=== PATIENT | female | born 1935 | race Caucasian/White ===

== ENCOUNTER 2019-11-20 08:54 | Outpatient (CLI) | payer MEDICARE, SELFPAY | END 2019-11-20 08:55 | disposition home or self-care (01) | PROVIDERS: PCP Family Medicine | DX: H91.93 Unspecified hearing loss, bilateral (principal) | CPT/HCPCS: 92557; 92567 ==

== ENCOUNTER 2019-12-23 09:37 | Outpatient (CLI) | payer MEDICARE, SELFPAY ==
--- NOTE | ~2019-12-23 | CT_ITS ---
EXAMINATION: CT orbit BI wo con DATE: 12/23/2019 10:04 INDICATION: Chronic headaches TECHNIQUE: Computed tomography (CT) of the abdomen was performed without intravenous contrast. Automa renay exposure control and iterative reconstruction technique were employed. Exam dose: 168.88 mGy-cm total exam DLP. Orbits COMPARISON: None. FINDINGS: The frontozygomatic sutures, orbital rims and orbital lorenzo are intact, without evidence of fracture or bone destruction. There is a small hyperdensity of the anteromedial right cornea right cornea. No orbital mass lesion. No retrobulbar mass lesion. The optic nerves and extraocular muscles are unremarkable and symmetric. Bilateral carotid siphon internal carotid artery calcifications are incidentally noted. There is slight mucoperiosteal thickening of the lower portion of each maxillary sinus. The paranasal sinuses and mastoid air cells are otherwise normally developed and aerated. Middle and inner ear urbano aratus are normal bilaterally. IMPRESSION: No significant abnormality of the orbits Reviewed, dictated and finalized at Location [facility]. Reviewed, dictated and finalized at location B.
== END 2019-12-23 09:38 | disposition home or self-care (01) ==
PROVIDERS: PCP Family Medicine; Visit Provider Family Medicine
DX: R51 Headache (principal)
CPT/HCPCS: 70480

== ENCOUNTER 2020-03-02 12:48 | Outpatient (CLI) | payer MEDICARE, SELFPAY ==
--- NOTE | ~2020-03-02 | XR_ITS ---
XR knee LT 3V 03/02/2020 13:34 Indication: Left knee pain Procedure: 3 views left knee Comparison: 06/05/2018 Findings: There is moderate-severe osteoarthritis of the left knee. Osteopenia. No acute fracture or traumatic malalignment. No significant joint effusion. No radiopaque foreign bodies. Impression: 1: Moderate-severe osteoarthritis of the left knee. Reviewed, dictated and finalized at location A. Impression: 1: Moderate-severe osteoarthritis of the left knee.
--- NOTE | ~2020-03-02 | US_ITS ---
EXAMINATION: US arterial ankle brachial ind DATE: 03/02/2020 15:03 INDICATION: Peripheral arterial disease. TECHNIQUE: Segmental pressures and plethysmographic and Doppler waveforms of the brachial and lower e xtremity arteries were obtained. COMPARISON: None. FINDINGS: Right and left brachial artery pressures of 152 mm Hg and 153 mm Hg, respectively, are concordant (no rmal difference <= 30 mmHg). There are changes of right lower limb amputation. The left ankle-brachial index (JACIEL) is 1.13 (normal >= 0.9-1.0). The right great toe-brachial index (TBI) is 0.59 (normal >= 0.65). Arterial Doppler wav eforms are monophasic in posterior tibial artery and biphasic in dorsalis pedis. IMPRESSION: 1. Mildly decreased left TBI and normal left JACIEL, consistent with arterial occlusive disease. Note th at JACIEL may be overestimated if arteries are calcified. 2. Right lower limb amputation. Reviewed, dictated and finalized at location A. IMPRESSION: 1. Mildly decreased left TBI and normal left JACIEL, consistent with arterial occl usive disease. Note that JACIEL may be overestimated if arteries are calcified. 2. Right lower limb amputation.
[2020-03-02 13:05] LABS: Basophils Absolute Auto 0.02 K/mm3 (0.00-0.10); Basophils Percent Auto 0.3 % (0.0-1.0); Eosinophils Absolute Auto 0.13 K/mm3 (0.02-0.50); Eosinophils Percent Auto 1.8 % (1.0-6.0); Hematocrit 39.3 % (35.0-42.0); Immature Granulocyte Absolute 0.02 K/mm3 (0.00-0.00); Immature Granulocyte Percent A 0.3 % (0.0-0.0); Lymphocytes Absolute Auto 2.45 K/mm3 (1.10-4.50); Lymphocytes Percent Auto 34.6 % (18.0-42.0); Mean Corpuscular HGB Conc 30.5 g/dL (32.0-36.0); Mean Corpuscular Hemoglobin 22.5 pg (27.0-31.0); Mean Corpuscular Volume 73.7 fL (78.0-102.0); Mean Platelet Volume 12.3 fl (9.2-11.8); Monocytes Absolute Auto 0.76 K/mm3 (0.10-0.90); Monocytes Percent Auto 10.7 % (2.0-11.0); Neutrophils Absolute Auto 3.7 K/mm3 (1.7-7.2); Neutrophils Percent Auto 52.3 % (50.0-70.0); Platelet Count Result 275 K/mm3 (150-420); Red Blood Count 5.33 M/mm3 (4.20-5.40); Red Cell Distribution Width 17.2 % (11.6-14.4); White Blood Count 7.1 K/mm3 (4.8-10.8)
[2020-03-02 13:18] LABS: Alanine Aminotransferase 16 U/L (14-59); Albumin Level 3.3 g/dL (3.4-5.0); Alkaline Phosphatase 71 U/L (46-116); Anion Gap 11.3 mmol/L (7-16); Aspartate Amino Transferase 11 U/L (15-37); Bilirubin,Total 0.3 mg/dL (0.00-1.00); Blood Urea Nitrogen 10 mg/dL (7-18); Calcium 8.9 mg/dL (8.5-10.1); Carbon Dioxide 28 mmol/L (21-32); Chloride 106 mmol/L (98-108); D Dimer 0.37 mg/L (0.19-0.50); Estimated Glomerular Filt Rate > 60; Glucose 103 mg/dL (70-99); Osmolality Calculated 291 mOsm/kg (285-295); Potassium 4.3 mmol/L (3.5-5.1); Sodium 141 mmol/L (136-145); Total Protein 6.7 g/dL (6.4-8.2)
== END 2020-03-02 12:49 | disposition home or self-care (01) ==
LOC: CHSLAB 12:50
PROVIDERS: PCP Family Medicine; Visit Provider Family Medicine
DX: R22.0 Localized swelling, mass and lump, head (principal); R09.89 Other specified symptoms and signs involving the circulatory and respiratory systems; M25.562 Pain in left knee
CPT/HCPCS: 36415; 73562; 80053; 85025; 85380; 93922

== ENCOUNTER 2020-03-12 09:24 | Outpatient (CLI) | payer MEDICARE, SELFPAY ==
--- NOTE | ~2020-03-12 | MR_ITS ---
EXAMINATION: MR brain IAC wo con EXAM DATE: 03/12/2020 11:00 INDICATION: Right-sided hearing loss. TECHNIQUE: Multi-sequential, multiplanar MR images of the brain, brainstem, internal auditory canals were obtained without contrast. Whole brain sagittal T1, axial diffusion, gradient echo (T2*), T1, T 2, FLAIR sequences obtained. High resolution coronal 3-D FIESTA, coronal T1 FSE, axial T1 FSPGR of t he internal auditory canals. According to note made by the technologist performing the examination, courtney islas declined contrast, stating allergic to all contrast. Correlation is made to head CT 01/21/2018. FINDINGS: No evidence of mastoid or middle ear opacification. The 7th/8th cranial nerve complexes a re symmetric, normal in course and caliber. No cerebellopontine angle masses. Posterior fossa unrem arkable. There are no areas of restricted diffusion to suggest acute infarction. There is no acute hemorrhage seen on the T2*, a hemosiderin sensitive sequence. No intraparenchymal brain mass lesion. There is mild periventricular and subcortical T2/FLAIR signal hyperintensity, nonspecific but probably related to small vessel ischemic disease (microangiopathy). There is mild prominence of the sulci and vent ricles related to cerebral atrophy. There are no extra-axial collections. Flow voids are seen in t he cerebral arteries on the T2-weighted sequences consistent with their expected patency. The orbits are unremarkable. Soft tissue is unremarkable. IMPRESSION: 1. Unremarkable cerebellopontine angles. 2. Mild chronic age related findings. Reviewed, dictated and finalized at location B.
== END 2020-03-12 09:25 | disposition home or self-care (01) ==
LOC: CHSIMG 09:26
PROVIDERS: PCP Family Medicine; Visit Provider Family Medicine
DX: R22.0 Localized swelling, mass and lump, head (principal)
CPT/HCPCS: 70551

== ENCOUNTER 2020-05-05 10:46 | Outpatient (CLI) | payer MEDICARE, MEDICAID, SELFPAY ==
--- NOTE | ~2020-05-05 | US_ITS ---
EXAMINATION: US thyroid DATE: 05/05/2020 11:37 INDICATION: Nontoxic goiter. Single thyroid nodule. TECHNIQUE: Multiple ultrasound images of the thyroid were obtained. COMPARISON: Ultrasound 12/26/2017 FINDINGS: The right thyroid lobe measures 6.0 x 2.4 x 1.5 cm. The left thyroid lobe measures 5.0 x 3.3 x 1.8 c m. In the right thyroid lobe, there is an 8 mm predominantly solid, hypoechoic, yegzi-fwep-rlrs nodu le with smooth margin without echogenic foci (TI-RADS TR4). In the right thyroid lobe, there is a 4.7 cm mixed cystic and solid, hypoechoic, ddmvp-rxmb-cero nodule with lobulated margin without echogeni c foci (TR4). In the left thyroid lobe, there is a 2.4 cm solid, hypoechoic, utbgw-[id number]-cfsf nodule w ith smooth margin without echogenic foci (TR4). IMPRESSION: 1. Thyroid nodules. Ultrasound-guided fine-needle aspiration is recommended of the 2 largest thyroid nodules if not previously performed. Reviewed, dictated and finalized at location B.
== END 2020-05-05 10:47 | disposition home or self-care (01) ==
PROVIDERS: PCP Family Medicine; Visit Provider Otolaryngology
DX: E04.9 Nontoxic goiter, unspecified (principal); E04.1 Nontoxic single thyroid nodule
CPT/HCPCS: 76536

== ENCOUNTER 2020-05-16 11:27 | Emergency (ER) | payer MEDICARE, MEDICAID, SELFPAY ==
--- NOTE | ~2020-05-16 | XR_ITS ---
EXAMINATION: XR chest 2V DATE: 05/16/2020 13:08 INDICATION: Hemoptysis. TECHNIQUE: Frontal and lateral views of the chest were obtained. COMPARISON: Chest single view 07/12/2011 FINDINGS: There is mild atelectasis at right lung base. No pleural effusion or pneumothorax. Cardiome hernan is noted. There is a large hiatal hernia. Surgical clips in the right upper quadrant are likely from cholecystectomy. IMPRESSION: 1. Large hiatal hernia. 2. Mild atelectasis at right lung base. 3. Cardiomegaly. Reviewed, dictated and finalized at location B.
[2020-05-16 12:23] VITALS: BP 120/65; PULSE 112; RESP 16; TEMP 37.1; O2SAT 97
--- NOTE | 2020-05-16 12:26 | ED.URI ---
HPI - URI/Sore Throat General Chief Complaint: Upper Respiratory Infection Stated Complaint: spitting up blood Time Seen by Provider: 05/16/20 12:27 History of Present Illness HPI Narrative: 85-year-old female patient is here with chief complaints of having spit up some blood for the last 3 days. She states that when she coughs she notices a small speck of blood and today she noticed a small clot. The blood is mixed with white sputum otherwise. There is no green drainage. The patient states that the cough is not very strong it is very mild. Patient has been diagnosed with a mass in the anterior neck recently and is scheduled for a biopsy on the mass in 2 days . patient is denying any sore throat. She states that she has no trouble speaking or breathing or swallowing. She does complain about mild wheezing. She denies any chest discomfort, shortness of breath or persistent cough. Patient denies being on blood thinners at this time. Patient is apparently getting herself ready to have a cataract surgery in the near future. Related Data Home Medications Medication Instructions Recorded Confirmed acetaminophen 500 mg tablet 500 mg PO Q6H PRN 10/16/19 aspirin 81 mg chewable tablet 81 mg PO DAILY 10/16/19 dicyclomine 10 mg capsule 10 mg PO BID 10/16/19 diltiazem HCl 180 mg capsule,24 180 mg PO DAILY 10/16/19 hr,extended release gabapentin 300 mg capsule 300 mg PO TID 10/16/19 metformin 500 mg tablet 500 mg PO BID 10/16/19 pravastatin 10 mg tablet 10 mg PO DAILY 10/16/19 Allergies Allergy/AdvReac Type Severity Reaction Status Date / Time IVP dye Allergy Intermediate Unknown Uncoded 03/29/20 10:40 Review of Systems Review of Systems: All systems reviewed & are unremarkable except as noted in HPI and below Constitutional: Constitutional: Reports no additional constitutional complaints Eyes: Eyes: Denies change in vision and Denies photophobia ENT: Denies epistaxis, Denies nasal congestion and Denies sore throat Cardiovascular: Cardiovascular: Reports no additional cardiovascular complaints Respiratory: Respiratory: Reports no additional respiratory complaints, Denies chest congestion and Denies dyspnea Integumentary/Breasts: Skin/Breast: Denies pruritus and Denies erythema Neurologic: Reports system reviewed and no additional complaints, except as documented Psychiatric: Psychiatric: Reports no additional psychiatric complaints Allergic/Immunologic: Allergic/Immunologic: Reports no additional allergic/immunologic complaints [facility] Past Medical History Medical History CAD in [place] artery Cervical spondylosis (10/22/17) 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) Decreased hearing (06/05/18) DM w/o complication type II (09/30/18) OLSON (dyspnea on exertion) Dyslipidemia Essential hypertension Pedal edema (03/17/18) Primary osteoarthritis of left knee Right carotid bruit Thyroid nodule (01/20/18) Family History Family History Other Diabetes mellitus Family history of arthritis Social History Social History Smoking status: Former smoker Alcohol intake: never Exam Const: General: no acute distress Orientation/consciousness: patient oriented x3 HENMT: Head: normal to inspection Ears: external ears normal and TM's normal bilaterally General nose exam: Normal nares present, no nasal discharge noted and no epistaxis Mouth: Yes lip normal Throat: posterior oropharynx normal and uvula midline Eyes: Conjunctivae: conjunctivae normal EOM: EOMs intact bilaterally Neck: Neck: normal visual inspection Other: A small firm masses noted in the suprasternal area. The mass is nontender to touch and the skin overlying it is within normal limits. Chest: Chest palpation & inspection: normal inspection of the liz
== END 2020-05-16 13:58 | disposition home or self-care (01) ==
PROVIDERS: Emergency Provider Emergency Medicine; PCP Family Medicine
DX: R04.2 Hemoptysis (principal)
CPT/HCPCS: 71046; 99282; 99283

== ENCOUNTER 2020-05-18 12:24 | Outpatient (CLI) | payer MEDICARE, MEDICAID, SELFPAY ==
--- NOTE | ~2020-05-18 | US_ITS ---
CORRECTED REPORT order changed 05/24/20 [facility] [place] EXAMINATION: US FNA w image guidance, US FNA w image guidance DATE: 05/18/2020 14:40 INDICATION: Patient presents for biopsy of indeterminate thyroid nodules, one in each lobe. TECHNIQUE: The procedure and its benefits and risks were discussed with the patient. Risks specifically discussed included bleeding and infection. The patient verbalized understanding of the risks and agreed to proceed. A time out was performed to verify patient information and procedure. The neck was prepared and draped in the usual sterile manner. Attention was first directed toward the solid left thyroid nodule. 1 mL 1% lidocaine was used for local anesthesia. Five passes were made with a 25G needle into the lesion. Appropriate needle location was documented with continuous sonographic guidance. The specimens were passed to the neurodiagnostic technologist in the room. Attention was then directed towards the cystic and solid right thyroid nodule. 1 mL 1% lidocaine was used for local anesthesia. Five passes were made with a 25G needle into the lesion. Appropriate needle location was documented with continuous sonographic guidance. The specimens were passed to the neurodiagnostic technologist in the room. A sterile bandage was applied. There were no immediate complications. FINDINGS: Grayscale ultrasound images demonstrate needles advanced into bilateral thyroid nodules for biopsy. IMPRESSION: 1. Successful ultrasound-guided fine needle aspiration of bilateral thyroid nodules. Reviewed, dictated and finalized at location A. MTDD IMPRESSION: 1. Successful ultrasound-guided fine needle aspiration of bilateral thyroid no dules.
== END 2020-05-18 12:25 | disposition home or self-care (01) ==
LOC: CHSIMG 12:26
PROVIDERS: PCP Family Medicine; Visit Provider Otolaryngology
DX: E04.1 Nontoxic single thyroid nodule (principal)
CPT/HCPCS: 10005; 10006; 88173; 88305

== ENCOUNTER 2020-06-24 09:55 | Outpatient (CLI) | payer MEDICARE, MEDICAID, SELFPAY ==
--- NOTE | ~2020-06-24 | CT_ITS ---
EXAMINATION: CT soft tissue neck wo con DATE: 06/24/2020 11:06 INDICATION: Neck mass. TECHNIQUE: Computed tomography (CT) of the neck was performed without intravenous contrast. Automated exposure control and iterative reconstruction technique were employed. The dose-length product was 4 33.53 mGy-cm. COMPARISON: CT neck 01/21/2018, thyroid ultrasound 05/05/2020 FINDINGS: There are no pathologically enlarged lymph nodes. There are nodules in the thyroid measurin g up to 5.4 cm. Calcified mediastinal lymph nodes are consistent with old granulomatous disease. Ther e is severe cervical spondylosis. IMPRESSION: 1. Multinodular goiter. Note that biopsy on 05/18/2020 was very suspicious for malignancy. No evidence of metastatic disease. Reviewed, dictated and finalized at location A. IMPRESSION: 1. Multinodular goiter. Note that biopsy on 05/18/2020 was very suspicious for m alignancy. No evidence of metastatic disease.
[2020-06-24 11:43] LABS: Thyroid Stimulating Hormone 0.661 uIU/mL (0.465-4.680)
[2020-06-24 12:22] LABS: Free T4 Free Thyroxine 1.17 ng/mL (0.78-2.19)
[2020-06-28 05:19] LABS: Calcitonin <2 pg/mL (<=5)
== END 2020-06-24 09:56 | disposition home or self-care (01) ==
LOC: ANHIMG 09:56
PROVIDERS: PCP Family Medicine; Visit Provider Otolaryngology
DX: C73 Malignant neoplasm of thyroid gland (principal); R22.1 Localized swelling, mass and lump, neck; E04.9 Nontoxic goiter, unspecified; E04.1 Nontoxic single thyroid nodule
CPT/HCPCS: 36415; 70490; 82308; 84439; 84443

== ENCOUNTER 2020-07-12 09:42 | Outpatient (CLI) | payer MEDICARE, MEDICAID, SELFPAY ==
--- NOTE | 2020-07-12 10:05 | ECG_ITS ---
Measurements Intervals [place] Rate: 116 P: IN: 0 QRS: 95 QRSD: 92 T: -74 QT: 339 QTc: 473 Interpretive Statements ATRIAL FIBRILLATION WITH RAPID VENTRICULAR RESPONSE CONSIDER LIMB LEAD REVERSAL CANNOT RULE OUT SEPTAL INFARCT, AGE INDETERMINATE BORDERLINE ST-T WAVE ABNORMALITY- INFERIOR LEADS ABNORMAL ECG Electronically Signed On 07-12-2020 10:26:56 CDT by Julio C Gomes D.O.
[2020-07-12 10:43] LABS: Anion Gap 14 mmol/L (8-16); Blood Urea Nitrogen 11 mg/dL (7-18); Carbon Dioxide 22 mmol/L (21-32); Chloride 106 mmol/L (98-108); Estimated Glomerular Filt Rate > 60; Glucose 142 mg/dL (70-99); Osmolality Calculated 295 mOsm/kg (285-295); Potassium 4.6 mmol/L (3.5-5.1); Sodium 142 mmol/L (136-145)
[2020-07-12 11:02] LABS: Cholesterol 157 mg/dL (0-200); HDL Direct 38 mg/dL (40-60); LDL Cholesterol Calculated 89 mg/dL (<130); Triglycerides 151 mg/dL (0-150)
== END 2020-07-12 09:43 | disposition home or self-care (01) ==
LOC: CHSLAB 09:45
PROVIDERS: PCP Family Medicine; Visit Provider Internal Medicine Cardiovascular Disease
DX: E78.5 Hyperlipidemia, unspecified (principal); E11.9 Type 2 diabetes mellitus without complications
CPT/HCPCS: 36415; 80048; 80061; 93005

== ENCOUNTER 2020-07-13 04:00 | Outpatient (CLI) | payer MEDICARE, MEDICAID, SELFPAY ==
[2020-07-13 19:05] LABS: SARS-CoV-2 RNA PCR Negative
== END 2020-07-13 04:01 | disposition home or self-care (01) ==
LOC: ANHCOVIDDT 04:02
PROVIDERS: PCP Family Medicine; Visit Provider Otolaryngology
DX: Z01.812 Encounter for preprocedural laboratory examination (principal); Z20.828 Contact with and (suspected) exposure to other viral communicable diseases
CPT/HCPCS: 87635; C9803; U0003

== ENCOUNTER 2020-07-14 11:01 | Outpatient (CLI) | payer MEDICARE, MEDICAID, SELFPAY ==
--- NOTE | 2020-07-14 11:10 | ECG_ITS ---
Measurements Intervals [place] Rate: 83 P: ND: 0 QRS: 97 QRSD: 99 T: -78 QT: 399 QTc: 470 Interpretive Statements ATRIAL FIBRILLATION RIGHT AXIS DEVIATION ANTEROSEPTAL INFARCT, AGE INDETERMINATE ST-T WAVE ABNORMALITY IN INF/LAT LEADS- CONSIDER ISCHEMIA ABNORMAL ECG Electronically Signed On 07-14-2020 11:17:20 CDT by Julio C Gomes D.O.
== END 2020-07-14 11:02 | disposition home or self-care (01) ==
LOC: CHSCARD 11:03
PROVIDERS: PCP Family Medicine; Visit Provider Anesthesiology
DX: I48.20 Chronic atrial fibrillation, unspecified (principal)
CPT/HCPCS: 93005

== ENCOUNTER 2020-08-03 07:42 | Outpatient (CLI) | payer MEDICARE, MEDICAID, SELFPAY | END 2020-08-03 07:43 | disposition home or self-care (01) | LOC: CHSIMG 07:45 | PROVIDERS: PCP Family Medicine | DX: Z53.8 Procedure and treatment not carried out for other reasons (principal) | CPT/HCPCS: 99199 ==

== ENCOUNTER 2020-09-12 12:23 | Outpatient (CLI) | payer MEDICARE, MEDICAID, SELFPAY ==
--- NOTE | ~2020-09-12 | XR_ITS ---
EXAMINATION: XR soft tissue neck DATE: 09/12/2020 12:59 INDICATION: Thyroid neoplasm, malignant. TECHNIQUE: 2 views of the neck soft tissues were obtained. COMPARISON: CT neck 06/24/2020 FINDINGS: The adenoids, palatine tonsils, prevertebral soft tissues, and epiglottis are normal. There is a mass in the anteroinferior neck. There is moderate cervical spondylosis. IMPRESSION: 1. 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 Reviewed, dictated and finalized at location A. GER IMPRESSION: 1. Anteroinferior neck mass again seen, consistent with medullary thyroid neal bedoya
--- NOTE | ~2020-09-12 | XR_ITS ---
XR chest 2V 09/12/2020 12:59 Indication: Coughing up blood. Procedure: PA and lateral views of the chest Comparison: 05/16/2020 Findings: Cardiomegaly. There is a coronary artery stent. There are calcified pulmonary nodules left midlung zone, consistent with chronic granulomatous disease. Large hiatal hernia. No focal pneumonia, effusion or pneumothorax. No acute osseous abnormality. Impression: 1: No acute cardiopulmonary disease. 2: Large hiatal hernia. Reviewed, dictated and finalized at location A. 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 2: Large hiatal hernia.
== END 2020-09-12 12:24 | disposition home or self-care (01) ==
LOC: CHSIMG 12:25
PROVIDERS: PCP Family Medicine; Visit Provider Family Medicine
DX: R06.02 Shortness of breath (principal); C73 Malignant neoplasm of thyroid gland
CPT/HCPCS: 70360; 71046

== ENCOUNTER 2020-09-14 13:29 | Outpatient (CLI) | payer MEDICARE, MEDICAID, SELFPAY ==
[2020-09-14 13:40] VITALS: PULSE 83; O2SAT 85
[2020-09-14 13:41] VITALS: PULSE 92; O2SAT 95
--- NOTE | 2020-09-14 14:06 | HOMEO2EVAL ---
Home Oxygen Evaluation RC: Home Oxygen (O2) Evaluation Start: 09/14/20 13:57 Freq: Status: Active Protocol: RPE Activity Type Activity Date Activity User E-Sign Co-Sign Detail Recorded Client Recorded Date Recorded By Document 09/14/20 13:40 B [id number] 09/14/20 14:05 SJB Document 09/14/20 13:41 B [id number] 09/14/20 14:05 B 09/14/20 09/14/20 13:40 13:41 Home O2 Evaluation Test Phase Resting Exercise Oxygen Delivery Room Air Nasal Cannula Oxygen Flow Rate (L/min) 2 Pulse Oximetry (90-100 %) 85 L 95 Pulse Rate (60-100 beats/min) 83 92 Activity Tolerance Poor Rating of Perceived Dyspnea (PD) +2 Mild, Some +4 Severe Difficulty, Difficulty, Noticeable to Participant the Observer Cannot Continue Rate of Perceived Exertion (PE) 13 Somewhat 15 Hard Hard Home Oxygen Evaluation Comments Pt exercised on Nustep X 6 mins on 2 lpm maintaining an Sp02 of 95%, taking a few rests during the exercise. Pt does have a below the knee amputee. Treatment Charges O2 Evaluation
== END 2020-09-14 13:30 | disposition home or self-care (01) ==
LOC: CHSCARD 13:31
PROVIDERS: PCP Family Medicine; Visit Provider Family Medicine
DX: R06.02 Shortness of breath (principal)
CPT/HCPCS: 94618

== ENCOUNTER 2020-09-17 11:18 | Observation (INO) | payer MEDICARE, MEDICAID, SELFPAY ==
[2020-09-17] VITALS (8 sets, daily range): BP systolic 111–133; BP diastolic 48–79; PULSE 95–154; RESP 17–36; TEMP 36.3–37; O2SAT 94–98; BMI 21.0
--- NOTE | ~2020-09-17 | NM_ITS ---
EXAMINATION: NM pulmonary perfusion EXAM DATE: 09/19/2020 12:22 INDICATION: Shortness of Breath, Elevated D-Dimer . TECHNIQUE: A perfusion lung scan was performed. The patient was injected with 5 mCi technetium 99m M AA and imaged. Modified PIOPED 2 criteria used for interpretation of perfusion without ventilation st udy (recent chest x-ray instead for comparison). Correlation is made to chest x-ray same date. FINDINGS: Minimal perfusion heterogeneity without segmental perfusion defects. No lung opacities on c hest x-ray same date. IMPRESSION: Very low probability pulmonary embolism. Reviewed, dictated and finalized at location B. CTOR OF BUSINESS OPERATIONS
--- NOTE | ~2020-09-17 | XR_ITS ---
EXAMINATION: XR chest 1V portable EXAM DATE: 09/17/2020 12:37 INDICATION: Shortness of breath. TECHNIQUE: Portable AP frontal chest x-ray was obtained. Comparison is made to prior examination from 09/12/2020. FINDINGS: Rounded approximately 1 cm left midlung zone density, could be granuloma given the adjacent calcifications. Possible air-fluid level within a central cavitary region. Follow-up nonemergent liz st CT recommended. The cardiomediastinal silhouette is prominent but magnified on this AP technique. There is no pneumothorax suspected. There are no pleural effusions. Large hiatal hernia less well urbano reciated on this examination. There is aortic arteriosclerosis. IMPRESSION: 1. Indeterminate left midlung zone cavitary nodular region. Follow-up chest CT without contrast phil mmended. 2. Gastroesophageal hiatal hernia. 3. No acute findings. Reviewed, dictated and finalized at location A. CAB DRIVER IMPRESSION: 1. Indeterminate left midlung zone cavitary nodular region. Follow-up chest CT without contrast recommended. 2. Gastroesophageal hiatal hernia. 3. No acute findings.
--- NOTE | ~2020-09-17 | XR_ITS ---
XR chest 1V portable 09/19/2020 11:52 Indication: Dyspnea Procedure: AP view of the chest Comparison: Comparison to multiple prior studies sequentially, with oldest reviewed study dated 05/16. Findings: Cardiomegaly. There is a hiatal hernia. No focal air space disease, pulmonary edema, pleura l effusion or suspected pneumothorax. No acute osseous abnormality. There are cholecystectomy clips. Impression: 1: No acute cardiopulmonary disease. 2: Cardiomegaly. 3: Hiatal hernia. Reviewed, dictated and finalized at location A. MOTIVE REPAIR TECHNICIAN Impression: 1: No acute cardiopulmonary disease. 2: Cardiomegaly. 3: Hiatal hernia.
--- NOTE | 2020-09-17 11:33 | ECG_ITS ---
Measurements Intervals [place] Rate: 150 P: ND: 0 QRS: 70 QRSD: 89 T: 0 QT: 271 QTc: 429 Interpretive Statements ATRIAL FIBRILLATION WITH RAPID VENTRICULAR RESPONSE VENTRICULAR PREMATURE COMPLEX ST-T WAVE ABNORMALITY IN ANTEROLAT/INF LEADS- CONSIDER ISCHEMIA BASELINE ARTIFACT- I, II, III, AVF, V3-V4 ABNORMAL ECG Electronically Signed On 09-18-2020 7:48:43 [employer] by Julio C Gomes D.O.
--- NOTE | 2020-09-17 11:36 | ED.SOB ---
HPI - SOB/Dyspnea General Chief Complaint: Shortness of Breath/Dyspnea Stated Complaint: ambulance Time Seen by Provider: 09/17/20 11:30 Source: patient Mode of arrival: EMS Limitations: no limitations History of Present Illness HPI Narrative: 85-year-old woman brought in today by EMS complaining of shortness of breath. She states that she has had cough productive of white sputum and some shortness of breath ever since May. She denies fever, hemoptysis, vomiting, fever, chest pain, and abdominal pain. She denies any sick exposures. She states that she is undergoing radiation therapy to her thyroid for a mass. She states she did not take her diltiazem this morning. MD elicited complaint: shortness of breath Pertinent past history: diabetes Onset (ago): week(s) Context: medication noncompliance Timing: constant Severity: moderate Exacerbating factors: nothing Known history of: diabetes and other ( atrial fibrillation) Associated symptoms: cough and sputum production Treatment prior to arrival: none Related Data Home Medications Medication Instructions Recorded Confirmed gabapentin 300 mg capsule 300 mg PO TID 10/16/19 09/17/20 metformin 500 mg tablet 500 mg PO BID 10/16/19 09/17/20 pravastatin 10 mg DAILY 07/08/20 09/17/20 diltiazem HCl 180 mg capsule,24 360 mg PO DAILY cap 07/13/20 09/17/20 hr,extended release alprazolam 0.25 mg PO HS PRN 09/17/20 09/17/20 metoprolol succinate 50 mg PO DAILY 09/17/20 09/17/20 Allergies Allergy/AdvReac Type Severity Reaction Status Date / Time iohexol Allergy Hives Verified 09/17/20 11:36 [From contrast - CT, X-RAY] Review of Systems Constitutional: Constitutional: Denies chills, Denies fever(s) and Reports weakness ENT: Denies dysphagia, Denies nasal congestion and Denies sore throat Cardiovascular: Cardiovascular: Denies chest pain and Denies radiating jaw, neck or arm pain Respiratory: Respiratory: Reports cough, Reports dyspnea and Denies wheezing Gastrointestinal: Gastrointestinal: Denies abdominal pain, Denies diarrhea, Denies nausea and Denies vomiting Genitourinary: Genitourinary: Denies nocturia and Denies dysuria Musculoskeletal: Musculoskeletal: Denies arthralgias and Denies joint swelling Integumentary/Breasts: Skin/Breast: Denies pruritus, Denies erythema and Denies rash Neurologic: Denies vertigo, Denies dizziness and Denies syncope Hematologic/Lymphatic: Hematologic/Lymphatic: Denies easy bleeding and Denies easy bruising Allergic/Immunologic: Allergic/Immunologic: Denies lip swelling, Denies throat swelling and Denies tongue swelling PMFSH Past Medical History Medical History CAD in [place] artery Cervical spondylosis (10/22/17) 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) Decreased hearing (06/05/18) DM w/o complication type II (09/30/18) OLSON (dyspnea on exertion) Dyslipidemia Essential hypertension Pedal edema (03/17/18) Primary osteoarthritis of left knee Right carotid bruit Thyroid nodule (01/20/18) Family History Family History Other Diabetes mellitus Family history of arthritis Social History Social History Smoking status: Former smoker Tobacco type: cigarettes Second hand tobacco smoke exposure: No Additional smoking assessment comments: QUIT 1985 Alcohol intake: never Spiritual care concerns: No Exam Const: General: alert and ill appearing chronically Nutritional Appearance: thin Orientation/consciousness: patient oriented x3 Limitations: no limitations Other: anxious appearing HENMT: Mouth: Yes moist mucous membranes Throat: posterior oropharynx normal and uvula midline Neck: Other: Nontender mobile mass over the sternal notch. Resp: Effort & Inspection: normal respiratory effort and not labored
[2020-09-17] MEDS: SODIUM CHLORIDE 0.9% IV 500 ML 999 ML IV CONT ×2 (11:53→12:47)
[2020-09-17 11:55] LABS: Basophils Absolute Auto 0.03 K/mm3 (0.00-0.10); Basophils Percent Auto 0.3 % (0.0-1.0); Eosinophils Absolute Auto 0.16 K/mm3 (0.02-0.50); Eosinophils Percent Auto 1.7 % (1.0-6.0); Hematocrit 45.3 % (35.0-42.0); Hemoglobin 13.4 g/dL (11.7-13.8); Immature Granulocyte Absolute 0.03 K/mm3 (0.00-0.00); Immature Granulocyte Percent A 0.3 % (0.0-0.0); Immature Platelet Fraction Pct 7.6 % (1.0-7.0); Lymphocytes Absolute Auto 1.26 K/mm3 (1.10-4.50); Lymphocytes Percent Auto 13.5 % (18.0-42.0); Mean Corpuscular HGB Conc 29.6 g/dL (32.0-36.0); Mean Corpuscular Hemoglobin 22.8 pg (27.0-31.0); Mean Corpuscular Volume 76.9 fL (78.0-102.0); Mean Platelet Volume 12.3 fl (9.2-11.8); Monocytes Absolute Auto 0.94 K/mm3 (0.10-0.90); Monocytes Percent Auto 10.1 % (2.0-11.0); Neutrophils Absolute Auto 6.9 K/mm3 (1.7-7.2); Neutrophils Percent Auto 74.1 % (50.0-70.0); Platelet Count Result 297 K/mm3 (150-420); Red Blood Count 5.89 M/mm3 (4.20-5.40); Red Cell Distribution Width 18.7 % (11.6-14.4); White Blood Count 9.3 K/mm3 (4.8-10.8)
[2020-09-17 11:57] LABS: Add Urine Microscopic? YES; Appearance Urine Sl Cloudy (Clear); Bilirubin Urine 1+ (Negative); Blood Urine Negative (Negative); Color Urine Yellow (Yellow); Glucose Urine UA Negative (Negative); Ketones Urine 3+ (Negative); Leukocyte Esterase Ur Trace LEU/UL (Negative); Nitrate Urine Positive (Negative); Protein Urine 1+ (Negative); pH Urine 6.5 (5.0-8.0)
[2020-09-17 12:01] LABS: Bacteria Urine 3+ /hpf; RBC Urine 0-2 /hpf (0-2); WBC Urine 0-3 /hpf (0-3)
[2020-09-17 12:08] LABS: INR 1.1; Partial Thromboplastin Time 37.4 SEC (23.90-30.70); Prothrombin Time 12.4 Seconds (9.50-12.10)
[2020-09-17 12:10] LABS: D Dimer 0.75 mg/L (0.19-0.50)
[2020-09-17 12:12] LABS: Lactic Acid Reflex 2.4 mmol/L (0.4-2.0)
[2020-09-17 12:19] LABS: Alanine Aminotransferase 7 U/L (14-59); Albumin Level 2.6 g/dL (3.4-5.0); Alkaline Phosphatase 90 U/L (46-116); Anion Gap 13 mmol/L (8-16); Aspartate Amino Transferase < 10 U/L (15-37); Bilirubin,Total 0.8 mg/dL (0.00-1.00); Blood Urea Nitrogen 12 mg/dL (7-18); Calcium 9.9 mg/dL (8.5-10.1); Carbon Dioxide 24 mmol/L (21-32); Chloride 105 mmol/L (98-108); Estimated Glomerular Filt Rate > 60; Glucose 146 mg/dL (70-99); Osmolality Calculated 296 mOsm/kg (285-295); Potassium 3.5 mmol/L (3.5-5.1); Sodium 142 mmol/L (136-145); Total Protein 6.4 g/dL (6.4-8.2); Troponin I 9.1 ng/L (0.00-60.4)
[2020-09-17 12:19] LABS: Thyroid Stimulating Hormone 1.02 uIU/mL (0.36-3.74)
[2020-09-17] MEDS: dilTIAZem HCL CD 180 MG CAP.ER.24H 360 MG PO (12:36)
--- NOTE | 2020-09-17 14:11 | PM.IMHP ---
H&P: HPI History of Present Illness Date/Time: 09/17/20 14:11 Chief Complaint: SOB Narrative: Kallie Granado is a 85 year old female comes to the hospital with shortness of breath since May. Patient states that the she did not take her Cardizem today and she has a history of atrial fibrillation with RVR. 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 Patient has a contrast allergy so CTA of the chest is not possible this time we will be putting in for V/Q scan. Review of Systems Constitutional: Constitutional: Denies body ache(s), Denies chills, Denies fatigue, Denies fever(s) and Denies weakness Cardiovascular: Cardiovascular: Denies chest pain, Denies chest pain at rest and Denies chest pain with activity Respiratory: Respiratory: Reports dyspnea and Reports dyspnea on exertion Gastrointestinal: Gastrointestinal: Reports no additional gastrointestinal complaints Genitourinary: Genitourinary: Reports no additional female genitourinary complaints Musculoskeletal: Comments: admits to right AKA [facility] Past Medical History Medical History CAD in [place] artery Cervical spondylosis (10/22/17) 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) Decreased hearing (06/05/18) DM w/o complication type II (09/30/18) OLSON (dyspnea on exertion) Dyslipidemia Essential hypertension Pedal edema (03/17/18) Primary osteoarthritis of left knee Right carotid bruit Thyroid nodule (01/20/18) Family History Family History Other Diabetes mellitus Family history of arthritis Social History Social History Smoking status: Former smoker Tobacco type: cigarettes Second hand tobacco smoke exposure: No Smoking end date: 09/23/84 Additional smoking assessment comments: QUIT 1985 Alcohol intake: former Substance use: never Gender identity (if verbalized by the patient): Female Spiritual care concerns: No Meds Home Medications and Allergies Home Medications Medication Instructions Recorded Confirmed Type gabapentin 300 mg capsule 300 mg PO TID 10/16/19 09/17/20 History metformin 500 mg tablet 500 mg PO BID 10/16/19 09/17/20 History pravastatin 10 mg DAILY 07/08/20 09/17/20 History diltiazem HCl 180 mg capsule,24 360 mg PO DAILY cap 07/13/20 09/17/20 History hr,extended release alprazolam 0.25 mg PO HS PRN 09/17/20 09/17/20 History metoprolol succinate 50 mg PO DAILY 09/17/20 09/17/20 History Allergies Allergy/AdvReac Type Severity Reaction Status Date / Time iohexol Allergy Hives Verified 09/17/20 11:36 [From contrast - CT, X-RAY] Vital Signs Vital Signs - 24 hr 09/17/20 11:20 09/17/20 12:27 09/17/20 13:06 Temperature 98.6 F Pulse Rate 154 H 141 H 139 H Respiratory Rate 20 20 17 Blood Pressure 120/66 130/79 130/74 Pulse Oximetry 98 97 95 Exam Const: General: cooperative, comfortable, no acute distress, alert, awake and Physically active HENMT: Face images: 1. firm thyroid nodule Neck: Neck: no JVD Thyroid: mass (patient has been diagnosed with medullary thyroid 09/12/2020) Carotids: no bruits Resp: Effort & Inspection: normal respiratory effort Auscultation: clear to auscultation bilaterally Cardio: Rhythm: abnormal rhythm (atrial fibrillation RVR) irregularly irregular GI: GI Palp: Yes Soft to palpation and No Tenderness to palpation present (GI) Auscultation: normal bowel sounds Extrem: Other: right AKA H&P: Results Labs Labs: Short CBC 09/17/20 Range/Units 11:37 WBC 9.3 (4.8-10.8) K/mm3 Hgb 13.4 (11.7-13.8) g/dL Hct 45.3 H (35.0-42.0) % Plt Count 297 (150-420) K/mm3 [facility] 09/17/20 11:37 Sodium 142 Potassium 3.5 Chloride 105 Carbon Dioxide 24 BUN 12 Creatinine 0.72 Gluco
[2020-09-17 14:49] LABS: Reflex Lactic Acid Yes or No Add Lactic
[2020-09-17 15:25] LABS: Lactic Acid 1.4 mmol/L (0.4-2.0)
[2020-09-17] MEDS: metFORMIN HCL 500 MG TABLET PO (16:18)
[2020-09-17] MEDS: GABAPENTIN 300 MG CAPSULE PO (16:18)
[2020-09-17] MEDS: SODIUM CHLORIDE 0.9% IV 1,000 ML 100 ML IV CONT (16:18)
[2020-09-17 16:53] LABS: Glucose Point of Care 120 (65-105)
[2020-09-17 18:14] LABS: Troponin I 8.5 ng/L (0.00-60.4)
[2020-09-17] MEDS: ALPRAZolam (*CRX) 0.25 MG TABLET PO (21:00)
[2020-09-17 21:08] LABS: Glucose Point of Care 268 (65-105)
--- NOTE | 2020-09-17 21:18 | PC.NURSE ---
pt encouraged to drink water, iv running, up to bedside commode and back to bed, call light in reach
[2020-09-18] VITALS (9 sets, daily range): BP systolic 93–128; BP diastolic 45–74; PULSE 66–102; RESP 18–24; TEMP 36.3–37.3; O2SAT 93–97
[2020-09-18 02:28] LABS: Troponin I 10.6 ng/L (0.00-60.4)
[2020-09-18] MEDS: SODIUM CHLORIDE 0.9% IV 1,000 ML 100 ML IV CONT (03:09)
[2020-09-18 05:21] LABS: Basophils Absolute Auto 0.01 K/mm3 (0.00-0.10); Basophils Percent Auto 0.2 % (0.0-1.0); Eosinophils Absolute Auto 0.14 K/mm3 (0.02-0.50); Eosinophils Percent Auto 2.7 % (1.0-6.0); Hemoglobin 11.2 g/dL (11.7-13.8); Immature Granulocyte Absolute 0.02 K/mm3 (0.00-0.00); Immature Granulocyte Percent A 0.4 % (0.0-0.0); Immature Platelet Fraction Pct 6.4 % (1.0-7.0); Lymphocytes Absolute Auto 0.85 K/mm3 (1.10-4.50); Lymphocytes Percent Auto 16.2 % (18.0-42.0); Mean Corpuscular HGB Conc 29.5 g/dL (32.0-36.0); Mean Corpuscular Hemoglobin 22.9 pg (27.0-31.0); Mean Corpuscular Volume 77.7 fL (78.0-102.0); Mean Platelet Volume 11.8 fl (9.2-11.8); Monocytes Absolute Auto 0.68 K/mm3 (0.10-0.90); Monocytes Percent Auto 12.9 % (2.0-11.0); Neutrophils Absolute Auto 3.6 K/mm3 (1.7-7.2); Neutrophils Percent Auto 67.6 % (50.0-70.0); Platelet Count Result 202 K/mm3 (150-420); Red Blood Count 4.89 M/mm3 (4.20-5.40); Red Cell Distribution Width 18.4 % (11.6-14.4); White Blood Count 5.3 K/mm3 (4.8-10.8)
[2020-09-18 05:37] LABS: Anion Gap 9 mmol/L (8-16); Blood Urea Nitrogen 6 mg/dL (7-18); Calcium 8.4 mg/dL (8.5-10.1); Carbon Dioxide 24 mmol/L (21-32); Chloride 109 mmol/L (98-108); Estimated CRCL calculation 63 ml/min; Estimated Glomerular Filt Rate > 60; Glucose 117 mg/dL (70-99); Osmolality Calculated 292 mOsm/kg (285-295); Potassium 3.3 mmol/L (3.5-5.1); Sodium 142 mmol/L (136-145); Troponin I 11.1 ng/L (0.00-60.4)
[2020-09-18 07:22] LABS: Glucose Point of Care 116 (65-105)
[2020-09-18] MEDS: ACETAMINOPHEN 500 MG TABLET PO (08:11)
[2020-09-18] MEDS: GABAPENTIN 300 MG CAPSULE PO (09:53)
[2020-09-18] MEDS: POTASSIUM CHLORIDE 20 MEQ TABLET 40 MEQ PO (09:53)
[2020-09-18] MEDS: PRAVASTATIN SODIUM 20 MG TABLET 10 MG PO (09:53)
[2020-09-18] MEDS: METOPROLOL SUCCINATE EXT REL 50 MG TABCR PO (09:54)
[2020-09-18] MEDS: metFORMIN HCL 500 MG TABLET PO ×2 (09:55→16:46)
[2020-09-18] MEDS: dilTIAZem HCL CD 180 MG CAP.ER.24H 360 MG PO (09:55)
[2020-09-18 11:42] LABS: Glucose Point of Care 131 (65-105)
--- NOTE | 2020-09-18 12:00 | WPDPN ---
Progress Note: A&P Assessment and Plan (1) Acute UTI: Code(s): N39.0 - Urinary tract infection, site not specified Status: Acute Assessment and Plan: 09/17/2020 Rocephin given in the ER, will continue this on the floor, blood and urine culture pending 09/18/2020 Continue Rocephin, cultures pending (2) Atrial fibrillation with rapid ventricular response: Code(s): I48.91 - Unspecified atrial fibrillation Status: Acute Assessment and Plan: 09/17/2020 patient started on oral Cardizem in the ER, monitor currently shows atrial fibrillation with a rate of upwards of 130, patient is without chest pain at this time, shortness of breath is minimal, patient able of talking complete sentences 09/18/2020 much better rate control with Cardizem (3) Acute dehydration: Code(s): E86.0 - Dehydration Status: Acute Assessment and Plan: 09/17/2020 patient given 2 L bolus in ER will continue with 100 mL/h while on the floor, monitor I&O 09/18/2020 Pt is tolerating PO fluids well (4) Dyslipidemia: Code(s): E78.5 - Hyperlipidemia, unspecified Status: Acute Assessment and Plan: 09/17/2020 continue pravastatin or similar if not in our formulary (5) Elevated d-dimer: Code(s): R79.89 - Other specified abnormal findings of blood chemistry Status: Acute Assessment and Plan: 09/17/2020 patient has allergy to IV contrast CTA of chest is contraindicated, V/Q scan ordered for Saturday, therapeutic Lovenox 09/18/2020 Pt states respiratory status is better today (6) History of right above knee amputation: Code(s): Z89.611 - Acquired absence of right leg above knee Status: Acute Assessment and Plan: 09/17/2020 continue gabapentin (7) Hypokalemia: Code(s): E87.6 - Hypokalemia Status: Acute Assessment and Plan: 09/18/2020 Potassium 3.3 this AM and replaced with 40 mEq potassium, will recheck in AM Review of Systems Constitutional: Constitutional: Denies body ache(s), Denies chills, Denies fever(s), Denies malaise and Denies weakness Cardiovascular: Cardiovascular: Reports no additional cardiovascular complaints, Denies chest pain, Denies chest pain at rest and Denies chest pain with activity Respiratory: Respiratory: Reports no additional respiratory complaints, Denies dyspnea and Denies dyspnea on exertion Gastrointestinal: Gastrointestinal: Reports no additional gastrointestinal complaints Genitourinary: Genitourinary: Reports no additional female genitourinary complaints Exam Const: General: cooperative, comfortable, no acute distress, alert, awake and Physically active Resp: Effort & Inspection: normal respiratory effort Auscultation: clear to auscultation bilaterally Cardio: Rhythm: abnormal rhythm (Atrial Fib, rate controled with cardizem) irregularly irregular Objective Data Vital Signs Vital Signs: Vital Signs - 24 hr 09/17/20 12:27 09/17/20 13:06 09/17/20 13:45 Temperature Pulse Rate 141 H 139 H 134 H Respiratory Rate 20 17 17 Blood Pressure 130/79 130/74 130/74 Pulse Oximetry 97 95 98 09/17/20 14:16 09/17/20 14:18 09/17/20 15:49 Temperature 98.2 F 98.2 F Pulse Rate 97 125 H 98 Respiratory Rate 36 H 36 H Blood Pressure 133/66 133/66 Pulse Oximetry 98 98 09/17/20 20:00 09/18/20 00:30 09/18/20 03:25 Temperature 97.4 F L 97.4 F L 97.6 F Pulse Rate 95 86 102 H Respiratory Rate 20 18 20 Blood Pressure 111/48 L 125/72 128/74 Pulse Oximetry 94 97 95 09/18/20 07:22 09/18/20 08:00 09/18/20 09:54 Temperature 98.6 F Pulse Rate 92 98 89 Respiratory Rate 24 H Blood Pressure 110/65 Pulse Oximetry 95 Intake/Output Intake/Output: Intake & Output 09/15/20 09/16/20 09/17/20 09/18/20 23:59 23:59 23:59 23:59 Intake Total 770 1250 Output Total 20 200 Balance 750 1050 Meds/Results Medications: Active Medications Generic Name Dose Route Start Last Admin Tra
[2020-09-18 16:49] LABS: Glucose Point of Care 150 (65-105)
[2020-09-18] MEDS: traMADol HCL (*CRX) 50 MG TABLET PO (18:47)
--- NOTE | 2020-09-18 19:15 | PM.OP ---
Procedure Note - Brief Procedure Note - Brief Date of procedure: 09/18/20 Pre-op diagnosis: ambulance Surgeon: César Rojas MD She is asking for something for her bowels. She appears uncomfortable, and says her neck hurts and is holding an ice pack to her neck. Lungs clear, heart RRR, abdomen soft nt, no edema. We will try some tramadol. Stop gabapentin as she does not like it, although it might have helped decrease pain. Add MOM 30 cc prn.
[2020-09-19] VITALS: BP 99/45; PULSE 66; PULSE 75; RESP 18; TEMP 36.6; O2SAT 93
[2020-09-19 04:00] VITALS: BP 121/62; PULSE 74; RESP 18; TEMP 36.6; O2SAT 94
[2020-09-19 07:07] LABS: Hematocrit 38.3 % (35.0-42.0); Hemoglobin 11.2 g/dL (11.7-13.8); Immature Platelet Fraction Pct 6.9 % (1.0-7.0); Mean Corpuscular HGB Conc 29.2 g/dL (32.0-36.0); Mean Corpuscular Hemoglobin 22.7 pg (27.0-31.0); Mean Corpuscular Volume 77.7 fL (78.0-102.0); Mean Platelet Volume 12.3 fl (9.2-11.8); Platelet Count Result 199 K/mm3 (150-420); Red Blood Count 4.93 M/mm3 (4.20-5.40); Red Cell Distribution Width 18.5 % (11.6-14.4); White Blood Count 5.4 K/mm3 (4.8-10.8)
[2020-09-19 07:19] LABS: Anion Gap 8 mmol/L (8-16); Blood Urea Nitrogen 5 mg/dL (7-18); Calcium 8.8 mg/dL (8.5-10.1); Carbon Dioxide 23 mmol/L (21-32); Chloride 110 mmol/L (98-108); Estimated CRCL calculation 64 ml/min; Estimated Glomerular Filt Rate > 60; Glucose 117 mg/dL (70-99); Osmolality Calculated 290 mOsm/kg (285-295); Potassium 3.6 mmol/L (3.5-5.1); Sodium 141 mmol/L (136-145)
[2020-09-19 07:59] VITALS: BP 119/88; PULSE 94; RESP 18; TEMP 36.6
[2020-09-19 08:06] LABS: Glucose Point of Care 123 (65-105)
[2020-09-19] MEDS: dilTIAZem HCL CD 180 MG CAP.ER.24H 360 MG PO (09:20)
[2020-09-19] MEDS: PRAVASTATIN SODIUM 20 MG TABLET 10 MG PO (09:21)
[2020-09-19 09:22] VITALS: PULSE 94
[2020-09-19] MEDS: METOPROLOL SUCCINATE EXT REL 50 MG TABCR PO (09:22)
[2020-09-19] MEDS: metFORMIN HCL 500 MG TABLET PO (09:22)
[2020-09-19] MEDS: traMADol HCL (*CRX) 50 MG TABLET PO (09:23)
--- NOTE | 2020-09-19 10:29 | PM.DS ---
DS: Admitting Diagnosis Admitting Diagnosis Admitting Diagnosis: Urinary tract infection shortness of breath atrial fibrillation dehydration right knee AKA <SAMIA Kelley - Last Filed: 09/19/20 13:02> DS: Discharge Diagnosis Discharge Diagnosis (1) Acute UTI: Code(s): N39.0 - Urinary tract infection, site not specified <Delon Low APN-C - Last Filed: 09/19/20 13:02> Status: Acute <ADI KelleyC - Last Filed: 09/19/20 13:02> Assessment and Plan: 09/17/2020 Rocephin given in the ER, will continue this on the floor, blood and urine culture pending 09/18/2020 Continue Rocephin, cultures pending 09/19/2020 culture positive for E coli, will send patient home on Cipro <Delon Low APN-C - Last Filed: 09/19/20 13:02> (2) Atrial fibrillation with rapid ventricular response: Code(s): I48.91 - Unspecified atrial fibrillation <Delon Low APN-C - Last Filed: 09/19/20 13:02> Status: Acute <Delon Low APN-C - Last Filed: 09/19/20 13:02> Assessment and Plan: 09/17/2020 patient started on oral Cardizem in the ER, monitor currently shows atrial fibrillation with a rate of upwards of 130, patient is without chest pain at this time, shortness of breath is minimal, patient able of talking complete sentences 09/18/2020 much better rate control with Cardizem 09/19/2020 heart rates been controlled with Cardizem patient has been pain-free and she needs follow-up with primary care provider within a week and or her transfer and pumphouse operator <SAMIA Kelley - Last Filed: 09/19/20 13:02> (3) Acute dehydration: Code(s): E86.0 - Dehydration <Delon Low APN-C - Last Filed: 09/19/20 13:02> Status: Acute <SAMIA Kelley - Last Filed: 09/19/20 13:02> Assessment and Plan: 09/17/2020 patient given 2 L bolus in ER will continue with 100 mL/h while on the floor, monitor I&O 09/18/2020 Pt is tolerating PO fluids well 09/19/2020 patient is tolerating p.o. fluids well <Delon FuentesADI moffettC - Last Filed: 09/19/20 13:02> (4) Dyslipidemia: Code(s): E78.5 - Hyperlipidemia, unspecified <Delon FuentesGAVIN moffett-C - Last Filed: 09/19/20 13:02> Status: Acute <Delon FuentesGAVIN moffett-C - Last Filed: 09/19/20 13:02> Assessment and Plan: 09/17/2020 continue pravastatin or similar if not in our formulary <Delon Chan ADI LowC - Last Filed: 09/19/20 13:02> (5) Elevated d-dimer: Code(s): R79.89 - Other specified abnormal findings of blood chemistry <Delon SuttonRosamaria AlfredoGAVIN moffett-C - Last Filed: 09/19/20 13:02> Status: Acute <Delon FuentesGAVIN moffett-C - Last Filed: 09/19/20 13:02> Assessment and Plan: 09/17/2020 patient has allergy to IV contrast CTA of chest is contraindicated, V/Q scan ordered for Saturday, Lovenox 09/18/2020 Pt states respiratory status is better today 09/19/2020 Radiology report indicated a very low probability of PE. <Delon SuttonADI CadenaC - Last Filed: 09/19/20 13:02> (6) History of right above knee amputation: Code(s): Z89.611 - Acquired absence of right leg above knee <Delon SuttonRosamaria Low APN-C - Last Filed: 09/19/20 13:02> Status: Acute <Delon SuttonRosamaria Low APN-C - Last Filed: 09/19/20 13:02> Assessment and Plan: 09/17/2020 continue gabapentin 09/19/2020 I was informed yesterday that patient refused her gabapentin <Delon LesleyRosamaria Low APN-C - Last Filed: 09/19/20 13:02> (7) Hypokalemia: Code(s): E87.6 - Hypokalemia <SAMIA Kelley - Last Filed: 09/19/20 13:02> Status: Acute <SAMIA Kelley - Last Filed: 09/19/20 13:02> Assessment and Plan: 09/18/2020 Potassium 3.3 this AM and replaced with 40 mEq potassium, will recheck in AM 09/19/2020 potassium 3.6 today patient may need to have follow-up labs with primary care provider <Delon Low
[2020-09-19 12:00] VITALS: BP 102/60; PULSE 90; RESP 18; TEMP 36.9; O2SAT 95
[2020-09-19 12:10] LABS: Glucose Point of Care 107 (65-105)
--- NOTE | 2020-09-29 11:33 | PC.NURSE ---
Pt states she doesn't know if she received her discharge instructions, she states her mind wonders . Pt doesn't appear to remember much of her stay. Pt states she did follow up with her PCP on Saturday as scheduled.
== END 2020-09-19 14:55 | disposition home or self-care (01) ==
LOC: CHSED 13:03 → CHS2ND 09-19 08:18
PROVIDERS: Nurse Practitioner Family; Admitting Provider Emergency Medicine; Emergency Provider Emergency Medicine; PCP Family Medicine; Visit Provider Emergency Medicine
DX: I48.20 Chronic atrial fibrillation, unspecified (principal); N39.0 Urinary tract infection, site not specified; E86.0 Dehydration; E87.6 Hypokalemia; C73 Malignant neoplasm of thyroid gland; I10 Essential (primary) hypertension; I25.10 Atherosclerotic heart disease of native coronary artery without angina pectoris; E78.5 Hyperlipidemia, unspecified; E11.9 Type 2 diabetes mellitus without complications; M17.12 Unilateral primary osteoarthritis, left knee; M47.812 Spondylosis without myelopathy or radiculopathy, cervical region; K44.9 Diaphragmatic hernia without obstruction or gangrene; R79.89 Other specified abnormal findings of blood chemistry; R09.89 Other specified symptoms and signs involving the circulatory and respiratory systems; Z92.3 Personal history of irradiation; Z87.891 Personal history of nicotine dependence; Z89.611 Acquired absence of right leg above knee
CPT/HCPCS: 36415; 51701; 71045; 78580; 80048; 80053; 81001; 83605; 84443; 84484; 85025; 85027; 85055; 85380; 85610; 85730; 87040; 87077; 87086; 87088; 87186; 93005; 96361; 96365; 97161; 99285; A9270; A9540; G0378; J0696; J7030; J7040

== ENCOUNTER 2020-10-16 16:08 | Emergency (ER) | payer MEDICARE, MEDICAID, SELFPAY ==
--- NOTE | ~2020-10-16 | XR_ITS ---
EXAMINATION: XR chest 1V portable EXAM DATE: 10/16/2020 17:02 INDICATION: Weakness, high temperature, heavy breathing and productive cough. TECHNIQUE: Portable AP frontal chest x-ray was obtained. Comparison is made to prior examination from 09/17/2020. FINDINGS: Again there is approximately 1.5 cm left midlung zone cavitary nodule, indeterminate. Moder ate chronic hyperinflation. Large gastroesophageal hiatal hernia with adjacent atelectasis. Mild card iomegaly. There is no pneumothorax suspected. The bones are osteopenic. There are bony degenerative changes. IMPRESSION: 1. Left midlung zone indeterminate nodule; nonemergent chest CT recommended. 2. Large hiatal hernia. 3. Mild cardiomegaly. 4. Hyperinflation. Reviewed, dictated and finalized at location A. NOMETER ASSEMBLER AND ADJUSTER
[2020-10-16 16:08] VITALS: BP 113/85; PULSE 126; RESP 22; TEMP 36.6; O2SAT 97
[2020-10-16 17:00] VITALS: BP 137/99; PULSE 128; RESP 26; O2SAT 95
[2020-10-16 17:00] LABS: Basophils Percent Auto 0.3 % (0.2-1.2); Eosinophils Absolute Auto 0.1 K/mm3 (0-0.3); Eosinophils Percent Auto 1.3 % (0-4.4); Hematocrit 44.3 % (37.0-47.0); Hemoglobin 13.6 g/dL (12.0-15.0); Immature Granulocyte Absolute 0.01 K/mm3 (0.00-0.031); Immature Granulocyte Percent A 0.1 % (0-0.5); Immature Platelet Fraction Pct 14.1 % (0.9-11.2); Lymphocytes Absolute Auto 1.27 K/mm3 (0.9-3.2); Lymphocytes Percent Auto 13.7 % (18.3-44.2); Mean Corpuscular HGB Conc 30.7 g/dl (32-36); Mean Corpuscular Volume 78.1 fl (80-100); Monocytes Absolute Auto 1.1 K/mm3 (0.1-0.6); Monocytes Percent Auto 11.4 % (2.6-8.5); Neutrophils Absolute Auto 6.8 K/mm3 (1.3-6.7); Neutrophils Percent Auto 73.2 % (45.5-73.1); Platelet Count Result 315 k/mm3 (150-375); Red Blood Count 5.67 M/mm3 (4.2-5.4); Red Cell Distribution Width 18.6 % (11.5-14.5); White Blood Count 9.3 K/mm3 (4.5-10.0)
[2020-10-16 17:19] LABS: Alanine Aminotransferase 10 U/L (4-35); Albumin Level 2.6 g/dL (3.5-5.1); Alkaline Phosphatase 72 U/L (38-126); Anion Gap 7 mmol/L (8-16); Aspartate Amino Transferase 18 U/L (14-36); Bilirubin,Total 0.6 mg/dL (0.2-1.3); Blood Urea Nitrogen 11 mg/dL (7-17); Calcium 8.7 mg/dL (8.4-10.2); Carbon Dioxide 27 mmol/L (22-30); Chloride 102 mmol/L (98-107); Estimated CRCL calculation 66 ml/min; Estimated Glomerular Filt Rate > 60; Glucose 202 mg/dL (65-105); Potassium 3.5 mmol/L (3.4-5.0); Sodium 136 mmol/L (137-145)
[2020-10-16 17:36] LABS: Add Urine Microscopic? YES; Appearance Urine Cloudy (Clear); Bilirubin Urine Negative (Negative); Blood Urine 1+ (Negative); Color Urine Amber (Yellow); Glucose Urine UA 1+ mg/dL (Negative); Hyaline Casts Urine 50+ /lpf; Ketones Urine Negative (Negative); Leukocyte Esterase Ur Negative LEU/UL (Negative); Mucus Urine Heavy /lpf; Nitrate Urine Negative (Negative); Protein Urine 3+ mg/dL (Negative); RBC Urine 51-75 /hpf (0-2); Specific Grav Ur 1.026 (1.001-1.035); Squamous Epithelial Cell Urine Moderate /hpf (Few); WBC Urine 0-3 /hpf
--- NOTE | 2020-10-16 17:42 | ED.GENADULT ---
HPI - General Adult General Chief complaint: Weakness Stated complaint: WEAKNESS Time Seen by Provider: 10/16/20 16:18 Source: patient Limitations: no limitations Related Data Home Medications Medication Instructions Recorded Confirmed gabapentin 300 mg capsule 300 mg PO TID 10/16/19 09/17/20 metformin 500 mg tablet 500 mg PO BID 10/16/19 09/17/20 pravastatin 10 mg DAILY 07/08/20 09/17/20 diltiazem HCl 180 mg capsule,24 360 mg PO DAILY cap 07/13/20 09/17/20 hr,extended release alprazolam 0.25 mg PO HS PRN 09/17/20 09/17/20 metoprolol succinate 50 mg PO DAILY 09/17/20 09/17/20 Allergies Allergy/AdvReac Type Severity Reaction Status Date / Time iohexol Allergy Hives Verified 09/17/20 11:36 [From contrast - CT, X-RAY] [facility] Past Medical History Medical History CAD in [place] artery Cervical spondylosis (10/22/17) 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) Decreased hearing (06/05/18) DM w/o complication type II (09/30/18) OLSON (dyspnea on exertion) Dyslipidemia Essential hypertension Pedal edema (03/17/18) Primary osteoarthritis of left knee Right carotid bruit Thyroid nodule (01/20/18) Family History Family History Other Diabetes mellitus Family history of arthritis Social History Social History Smoking status: Former smoker Tobacco type: cigarettes Second hand tobacco smoke exposure: No Smoking end date: 09/23/84 Additional smoking assessment comments: QUIT 1985 Alcohol intake: former Substance use: never Gender identity (if verbalized by the patient): Female Spiritual care concerns: No Course Vital Signs Vital signs: Vital Signs Temperature 36.6 C 10/16/20 16:08 Pulse Rate 126 H 10/16/20 16:08 Respiratory Rate 22 H 10/16/20 16:08 Blood Pressure 113/85 10/16/20 16:08 Pulse Oximetry 97 10/16/20 16:08 Temperature 36.6 C 10/16/20 16:08 Pulse Rate 126 H 10/16/20 16:08 Respiratory Rate 22 H 10/16/20 16:08 Blood Pressure 113/85 10/16/20 16:08 Pulse Oximetry 97 10/16/20 16:08 Medical Decision Making Vital Signs Vital Signs: Vital Signs Temperature 36.6 C 10/16/20 16:08 Pulse Rate 126 H 10/16/20 16:08 Respiratory Rate 22 H 10/16/20 16:08 Blood Pressure 113/85 10/16/20 16:08 Pulse Oximetry 97 10/16/20 16:08 Temperature 36.6 C 10/16/20 16:08 Pulse Rate 126 H 10/16/20 16:08 Respiratory Rate 22 H 10/16/20 16:08 Blood Pressure 113/85 10/16/20 16:08 Pulse Oximetry 97 10/16/20 16:08 Lab Data Result diagrams: 10/16/20 16:41 10/16/20 16:41 Labs: Lab Results 10/16/20 10/16/20 10/16/20 Range/Units 16:41 16:41 17:22 WBC 9.3 (4.5-10.0) K/mm3 RBC 5.67 H (4.2-5.4) M/mm3 Hgb 13.6 (12.0-15.0) g/dL Hct 44.3 (37.0-47.0) % MCV 78.1 L (80-100) fl MCH 24.0 L (26-34) pg MCHC 30.7 L (32-36) g/dl RDW 18.6 H (11.5-14.5) % Plt Count 315 (150-375) k/mm3 MPV TNP Immature Gran % (Auto) 0.1 (0-0.5) % Neut % (Auto) 73.2 H (45.5-73.1) % Lymph % (Auto) 13.7 L (18.3-44.2) % [place] % (Auto) 11.4 H (2.6-8.5) % Eos % (Auto) 1.3 (0-4.4) % Baso % (Auto) 0.3 (0.2-1.2) % Lymph # (Auto) 1.27 (0.9-3.2) K/mm3 [place] # (Auto) 1.1 H (0.1-0.6) K/mm3 Eos # (Auto) 0.1 (0-0.3) K/mm3 Baso # (Auto) 0.0 (0.0-0.1) K/mm3 Abs Immat Gran (auto) 0.01 (0.00-0.031) K/mm3 Absolute Neuts (auto) 6.8 H (1.3-6.7) K/mm3 Absolute Nucleated RBC 0.0 (0.0-0.012) K/mm3 Nucleated RBC % 0.0 (0.0-0.2) % % Immature Plt Fraction 14.1 H (0.9-11.2) % Sodium 136 L (137-145) mmol/L Potassium 3.5 (3.4-5.0) mmol/L Chloride 102 (98-107) mmol/L Carbon Dioxide 27 (22-30) mmol/L Anion Gap 7 L (
[2020-10-16 17:45] VITALS: BP 98/69; PULSE 124; RESP 22; O2SAT 98
--- NOTE | 2020-10-16 17:50 | ED.GENADULT ---
HPI - General Adult General Chief complaint: Weakness Stated complaint: WEAKNESS Time Seen by Provider: 10/16/20 16:18 Source: patient Limitations: no limitations History of Present Illness HPI narrative: Patient presents with general weakness for the last few weeks. History of thyroid malignancy with a large mass. Last radiation therapy was August 2020 patient unable to tolerate the low back radiation therapy. Patient also complaining of intermittent choking and the coughing. But able to swallow and debride. Patient denies any difficulty breathing or swallowing. Her daughter is wondering what else can be done to help her with her thyroid mass. Especially patient been losing weight lately. Patient denies any fever, chills, nausea, vomiting, chest pain, shortness of breath, back pain or headache. Related Data Home Medications Medication Instructions Recorded Confirmed gabapentin 300 mg capsule 300 mg PO TID 10/16/19 09/17/20 metformin 500 mg tablet 500 mg PO BID 10/16/19 09/17/20 pravastatin 10 mg DAILY 07/08/20 09/17/20 diltiazem HCl 180 mg capsule,24 360 mg PO DAILY cap 07/13/20 09/17/20 hr,extended release alprazolam 0.25 mg PO HS PRN 09/17/20 09/17/20 metoprolol succinate 50 mg PO DAILY 09/17/20 09/17/20 Allergies Allergy/AdvReac Type Severity Reaction Status Date / Time iohexol Allergy Hives Verified 10/16/20 19:20 [From contrast - CT, X-RAY] Review of Systems Review of Systems: Narrative: CONSTITUTIONAL: Denies fever, chills, or sweats. EYES: Denies visual changes, redness, or discharge. ENT: Denies rhinorrhea, congestion, sore throat, or otalgia. CARDIOVASCULAR: Denies chest pain, palpitations, or edema. RESPIRATORY: Denies cough or dyspnea. GASTROINTESTINAL: Denies abdominal pain, nausea, vomiting, or diarrhea. GENITOURINARY: Denies dysuria or hematuria. SKIN: Denies rash or itching. MUSCULOSKELETAL: Denies back pain, joint pain, or myalgia. NEUROLOGIC: Denies headache, numbness, or weakness. PSYCHIATRIC: Denies anxiety or depression. 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) Decreased hearing (06/05/18) DM w/o complication type II (09/30/18) OLSON (dyspnea on exertion) Dyslipidemia Essential hypertension Pedal edema (03/17/18) Primary osteoarthritis of left knee Right carotid bruit Thyroid nodule (01/20/18) Family History Family History Other Diabetes mellitus Family history of arthritis Social History Social History Smoking status: Former smoker Tobacco type: cigarettes Second hand tobacco smoke exposure: No Smoking end date: 09/23/84 Additional smoking assessment comments: QUIT 1985 Alcohol intake: former Substance use: never Gender identity (if verbalized by the patient): Female Spiritual care concerns: No Exam Narrative: Exam Narrative: General appearance: Well-developed, malnourished Skin: Normal color Head: Normocephalic, nontraumatic Eyes: Clear conjunctiva ENT: Oropharynx normal, ears normal, nose normal Neck: Supple, nontender, large, firm nontender thyroid mass Chest and respiratory: Airway patent, no respiratory distress, no accessory muscle use Heart: Regular rate/rhythm Abdomen: Soft, nontender, no organomegaly, quiet bowel sounds Vascular: Normal peripheral pulses, normal capillary refill. Musculoskeletal: Normal range of motion, nontender back Neurologic: Alert and oriented ?3, EXPORT ADMINISTRATOR is normal as tested, no gross motor deficit
[2020-10-16 18:45] VITALS: BP 114/87; PULSE 122; RESP 20; O2SAT 98
== END 2020-10-16 20:37 | disposition home or self-care (01) ==
PROVIDERS: Emergency Provider Emergency Medicine; PCP Family Medicine
DX: R53.1 Weakness (principal); C73 Malignant neoplasm of thyroid gland; I25.10 Atherosclerotic heart disease of native coronary artery without angina pectoris; Z94.1 Heart transplant status; E11.9 Type 2 diabetes mellitus without complications; E78.5 Hyperlipidemia, unspecified; I10 Essential (primary) hypertension; M17.12 Unilateral primary osteoarthritis, left knee; Z87.891 Personal history of nicotine dependence; R91.1 Solitary pulmonary nodule; I51.7 Cardiomegaly; K44.9 Diaphragmatic hernia without obstruction or gangrene; Z79.84 Long term (current) use of oral hypoglycemic drugs
CPT/HCPCS: 36415; 51701; 71045; 80053; 81001; 85025; 85055; 99283